=== PATIENT | female | born 1995 | race Caucasian/White ===

== ENCOUNTER 2024-11-09 07:59 | Emergency (ER) | payer MEDICAID ==
[~2024-11-09] VITALS: Ht 154.9 cm; Wt 61.2 kg
[2024-11-09 08:18] VITALS: O2SAT 95
[2024-11-09] MEDS: ALBUTEROL FS 2.5 MG/3 ML VIAL.NEB CONTNEB ONE (08:18)
[2024-11-09] MEDS: IPRATROPIUM NEB FS 0.5 MG/2.5 ML AMPUL.NEB NEB ONE (08:18)
[2024-11-09] MEDS ORDERED: ALBUTEROL FS 2.5 MG/3 ML VIAL.NEB ONE (08:19)
[2024-11-09] MEDS ORDERED: IPRATROPIUM NEB FS 0.5 MG/2.5 ML AMPUL.NEB ONE (08:19)
[2024-11-09] MEDS ORDERED: Magnesium 1GM/D5W 100ML PREMIX 200 ML IV ONE (08:27)
[2024-11-09] MEDS ORDERED: methylPREDNISolone SOD SUCC 125 MG/2ML VIAL ONE (08:28)
[2024-11-09] MEDS: Magnesium 1GM/D5W 100ML PREMIX 200 ML IV ONE (08:42)
[2024-11-09] MEDS: methylPREDNISolone SOD SUCC 125 MG/2ML VIAL IV ONE (08:43)
[2024-11-09 09:05] VITALS: O2SAT 98; O2SAT 99
[2024-11-09] MEDS ORDERED: ALBU18HF2 INH (09:44)
[2024-11-09] MEDS ORDERED: IPRA3AMP23 IH (09:44)
[2024-11-09] MEDS ORDERED: PRED50TA PO (09:44)
[2024-11-09 10:45] VITALS: BP 114/77; TEMP 97.9; O2SAT 98
== END 2024-11-09 11:01 | disposition home or self-care (01) ==
LOC: ER 08:13
DX: J45.909 Unspecified asthma, uncomplicated (principal); R05.9 Cough, unspecified; R07.89 Other chest pain
CPT/HCPCS: 99285; 96365; 71045; 96366; 96375; 94644; J2919; J7030; A4223; J3475

== ENCOUNTER 2025-01-22 09:52 | Emergency (ER) | payer MEDICAID, OTHER ==
[~2025-01-22] VITALS: Ht 154.9 cm; Wt 61.2 kg
[~2025-01-22 09:52] MED LIST: ALBU18HF2 INH; IPRA3AMP23 IH; PRED50TA PO
[2025-01-22] MEDS ORDERED: methylPREDNISolone SOD SUCC 125 MG/2ML VIAL ONE (10:04)
[2025-01-22] MEDS ORDERED: Magnesium 1GM/D5W 100ML PREMIX 200 ML IV ONE (10:05)
[2025-01-22] MEDS ORDERED: IPRATROPIUM NEB FS 0.5 MG/2.5 ML AMPUL.NEB ONE (10:06)
[2025-01-22] MEDS ORDERED: ALBUTEROL FS 2.5 MG/3 ML VIAL.NEB ONE (10:06)
[2025-01-22 10:07] VITALS: O2SAT 93
[2025-01-22] MEDS: ALBUTEROL FS 2.5 MG/3 ML VIAL.NEB NEB ONE (10:07)
[2025-01-22] MEDS: IPRATROPIUM NEB FS 0.5 MG/2.5 ML AMPUL.NEB NEB ONE (10:07)
[2025-01-22] MEDS: methylPREDNISolone SOD SUCC 125 MG/2ML VIAL IV ONE (10:14)
[2025-01-22] MEDS: Magnesium 1GM/D5W 100ML PREMIX 200 ML IV ONE (10:14)
[2025-01-22 10:15] VITALS: TEMP 98.9
[2025-01-22 11:08] VITALS: O2SAT 97
[2025-01-22] MEDS ORDERED: ALBU18HF2 INH (11:48)
[2025-01-22] MEDS ORDERED: PRED20TA PO (11:48)
[2025-01-22 12:43] VITALS: BP 115/75; O2SAT 98
== END 2025-01-22 12:30 | disposition home or self-care (01) ==
LOC: ER 09:56
DX: J45.901 Unspecified asthma with (acute) exacerbation (principal); R06.02 Shortness of breath; Z79.52 Long term (current) use of systemic steroids; Z79.899 Other long term (current) drug therapy
CPT/HCPCS: 99284; 96365; 96366; 96375; 94640; J2919; A4223; J3475